=== PATIENT | female | born 1970 | race Caucasian/White ===

== ENCOUNTER → 2019-11-18 11:30 | Outpatient (CLI) | payer OTHER, SELFPAY ==
--- NOTE | ~2019-11-18 | MM_ITS ---
EXAMINATION: MM screening [facility]ar BI w angel HISTORY: Screening mammogram TECHNIQUE: Craniocaudal and mediolateral oblique 3-D tomosynthesis images were obtained and synthetic 2-D images were generated. CAD analysis was submitted and interpreted. COMPARISON: 03/30/2018 diagnostic right digital mammogram and limited right breast ultrasound 03/22/2018, 02/13/2017 bilateral digital screening mammogram examinations BREAST PARENCHYMAL COMPOSITION: The breasts are heterogeneously dense, which may obscure small masses . FINDINGS: There is no evidence of suspicious mass, calcification, or architectural distortion to sugg est malignancy in either breast. There has been no suspicious interval change. IMPRESSION: 1. No mammographic evidence of malignancy. 2. Recommend routine screening mammography in one year. BI-RADS Category 1: Negative Reviewed, dictated and finalized at location A.
== END ==
PROVIDERS: PCP Family Medicine; Visit Provider Obstetrics & Gynecology
DX: Z12.31 Encounter for screening mammogram for malignant neoplasm of breast (principal)
CPT/HCPCS: 77063; 77067

== ENCOUNTER 2021-01-05 13:21 | Emergency (ER) | payer OTHER, SELFPAY ==
--- NOTE | ~2021-01-05 | XR_ITS ---
EXAMINATION: XR chest 2V DATE: 01/05/2021 13:41 INDICATION: Chest pain. TECHNIQUE: Frontal and lateral views of the chest were obtained. COMPARISON: Chest 2 views 05/31/2010 FINDINGS: The chest demonstrates clear lungs without pneumonia, pleural effusion, or pneumothorax. Th e heart size is normal. IMPRESSION: 1. No acute cardiopulmonary disease. Reviewed, dictated and finalized at location A.
--- NOTE | 2021-01-05 13:22 | ECG_ITS ---
Measurements Intervals [place] Rate: 80 P: 76 W[place]: 148 QRS: 83 QRSD: 84 T: 17 QT: 358 QTc: 413 Interpretive Statements SINUS RHYTHM WITH SINUS ARRHYTHMIA NONSPECIFIC ST & T-WAVE ABNORMALITY- ANTEROLAT/INF LEADS BASELINE WANDER- II, III BORDERLINE ECG Electronically Signed On 01-05-2021 15:09:13 CDT by Jeronimo Teresa D.O.
[2021-01-05 13:37] VITALS: BP 154/93; PULSE 80; RESP 18; TEMP 36.6; O2SAT 98
[2021-01-05 13:44] LABS: Basophils Percent Auto 0.6 % (0.2-1.2); Eosinophils Absolute Auto 0.2 K/mm3 (0-0.3); Eosinophils Percent Auto 2.6 % (0-4.4); Hematocrit 38.7 % (37.0-47.0); Hemoglobin 13.2 g/dL (12.0-15.0); Immature Granulocyte Absolute 0.01 K/mm3 (0.00-0.031); Immature Granulocyte Percent A 0.1 % (0-0.5); Lymphocytes Absolute Auto 2.67 K/mm3 (0.9-3.2); Lymphocytes Percent Auto 38.8 % (18.3-44.2); Mean Corpuscular HGB Conc 34.1 g/dl (32-36); Mean Corpuscular Hemoglobin 31.6 pg (26-34); Mean Corpuscular Volume 92.6 fl (80-100); Mean Platelet Volume 10.1 fl (7.4-10.4); Monocytes Absolute Auto 0.6 K/mm3 (0.1-0.6); Monocytes Percent Auto 8.4 % (2.6-8.5); Neutrophils Absolute Auto 3.4 K/mm3 (1.3-6.7); Neutrophils Percent Auto 49.5 % (45.5-73.1); Platelet Count Result 216 k/mm3 (150-375); Red Blood Count 4.18 M/mm3 (4.2-5.4); Red Cell Distribution Width 12.2 % (11.5-14.5); White Blood Count 6.9 K/mm3 (4.5-10.0)
[2021-01-05 13:52] VITALS: PULSE 85; O2SAT 100
[2021-01-05 13:53] LABS: Anion Gap 11 mmol/L (8-16); Blood Urea Nitrogen 15 mg/dL (7-17); Calcium 9.4 mg/dL (8.4-10.2); Carbon Dioxide 26 mmol/L (22-30); Chloride 102 mmol/L (98-107); Estimated Glomerular Filt Rate > 60; Glucose 109 mg/dL (65-105); Potassium 3.8 mmol/L (3.4-5.0); Sodium 139 mmol/L (137-145)
[2021-01-05 14:05] LABS: Troponin I < 0.012 ng/mL (0.000-0.034)
--- NOTE | 2021-01-05 14:12 | ED.CHESTPAIN ---
HPI - Chest Pain General Chief Complaint: Chest Pain Stated Complaint: cp Time Seen by Provider: 01/05/21 13:33 Source: patient and RN notes reviewed Mode of arrival: ambulatory Limitations: no limitations History of Present Illness HPI narrative: Patient is 50 years old white female presents with intermittent left chest burning sensation gets worse with breathing radiating to left upper back started 24 hours ago. Patient denies any relieving factors. Patient also complaining of intermittent epigastric pain mainly after eating meat for the last 2 weeks. Currently is asymptomatic. History of hypertension. Does not smoke does not drink does not use drugs. Under tremendous amount of stress lately. Patient denies any fever, chills, nausea, vomiting, Covid infection, or Covid vaccination. Related Data Allergies Allergy/AdvReac Type Severity Reaction Status Date / Time amoxicillin [From Augmentin] AdvReac Intermediate Nausea and Verified 01/05/21 13:54 Vomiting clavulanic acid AdvReac Intermediate Nausea and Verified 01/05/21 13:54 [From Augmentin] Vomiting Review of Systems Review of Systems: Narrative: CONSTITUTIONAL: Denies fever, chills, or sweats. EYES: Denies visual changes, redness, or discharge. ENT: Denies rhinorrhea, congestion, sore throat, or otalgia. CARDIOVASCULAR: Denies chest pain, palpitations, or edema. RESPIRATORY: Denies cough or dyspnea. GASTROINTESTINAL: Denies abdominal pain, nausea, vomiting, or diarrhea. GENITOURINARY: Denies dysuria or hematuria. SKIN: Denies rash or itching. MUSCULOSKELETAL: Denies back pain, joint pain, or myalgia. NEUROLOGIC: Denies headache, numbness, or weakness. PSYCHIATRIC: Denies anxiety or depression. [facility] Past Medical History Medical History Anxiety BMI 27.0-27.9,adult Depression Endometriosis Genital herpes HLD (hyperlipidemia) Hypertension Surgical History Surgical History H/O: hysterectomy Family History Family History Mother Depression Grandparent Hypertension Carcinoma of colon Family history of malignant neoplasm of breast Father Family history of diabetes mellitus in first degree relative Social History Social History Smoking status: Never smoker Second hand tobacco smoke exposure: No Alcohol intake: never Course Vital Signs Vital signs: Vital Signs Temperature 36.6 C 01/05/21 13:37 Pulse Rate 80 01/05/21 13:37 Respiratory Rate 18 01/05/21 13:37 Blood Pressure 154/93 H 01/05/21 13:37 Pulse Oximetry 98 01/05/21 13:37 Temperature 36.6 C 01/05/21 13:37 Pulse Rate 85 01/05/21 13:52 Respiratory Rate 18 01/05/21 13:37 Blood Pressure 154/93 H 01/05/21 13:37 Pulse Oximetry 100 01/05/21 13:52 MDM - Chest Pain Lab Data Result diagrams: 01/05/21 13:34 01/05/21 13:34 Labs: Lab Results 01/05/21 01/05/21 01/05/21 Range/Units 13:34 13:34 13:34 WBC 6.9 (4.5-10.0) K/mm3 RBC 4.18 L (4.2-5.4) M/mm3 Hgb 13.2 (12.0-15.0) g/dL Hct 38.7 (37.0-47.0) % MCV 92.6 (80-100) fl MCH 31.6 (26-34) pg MCHC 34.1 (32-36) g/dl RDW 12.2 (11.5-14.5) % Plt Count 216 (150-375) k/mm3 MPV 10.1 (7.4-10.4) fl Immature Gran % (Auto) 0.1 (0-0.5) % Neut % (Auto) 49.5 (45.5-73.1) % Lymph % (Auto) 38.8 (18.3-44.2) % [place] % (Auto) 8.4 (2.6-8.5) % Eos % (Auto) 2.6 (0-4.4) % Baso % (Auto) 0.6 (0.2-1.2) % Lymph # (Auto) 2.67 (0.9-3.2) K/mm3 [place] # (Auto) 0.6 (0.1-0.6) K/mm3 Eos # (Auto) 0.2 (0-0.3) K/mm3 Baso # (Auto) 0.0 (0.0-0.1) K/mm3 Abs Immat Gran (auto) 0.01 (0.00-0.031) K/mm3 Absolute Neuts (auto) 3.4 (1.3-6.7) K/mm3 Absolute Nucleated RBC 0.0 (0.0-0.012) K/mm3 Nucleated RB
[2021-01-05 14:18] LABS: Lipase 30 U/L (23-300)
[2021-01-05 14:32] LABS: Prothrombin Time 13.3 Seconds (11.1-14.7)
[2021-01-05 14:34] LABS: Partial Thromboplastin Time 27.4 SECONDS (22.3-36.8)
[2021-01-05] MEDS: ASPIRIN 81 MG CHEWABLE TABLET 324 MG PO (14:34)
[2021-01-05 14:49] LABS: D Dimer 0.25 ug/mL (<0.48)
[2021-01-05 15:50] VITALS: BP 156/91; PULSE 83; RESP 18; O2SAT 100
== END 2021-01-05 15:50 | disposition home or self-care (01) ==
PROVIDERS: Emergency Provider Emergency Medicine; PCP Family Medicine
DX: F41.9 Anxiety disorder, unspecified (principal); R07.9 Chest pain, unspecified; R10.10 Upper abdominal pain, unspecified; E78.5 Hyperlipidemia, unspecified; I10 Essential (primary) hypertension; F32.9 Major depressive disorder, single episode, unspecified; N80.9 Endometriosis, unspecified; R94.31 Abnormal electrocardiogram [ECG] [EKG]
CPT/HCPCS: 36415; 71046; 80048; 83690; 84484; 85025; 85380; 85610; 85730; 93005; 99284; A9270

== ENCOUNTER → 2021-03-11 17:25 | Outpatient (CLI) | payer OTHER, SELFPAY ==
--- NOTE | ~2021-03-11 | MM_ITS ---
EXAMINATION: MM screening cesar BI w angel HISTORY: Screening TECHNIQUE: Craniocaudal and mediolateral oblique 3-D tomosynthesis images were obtained and synthetic 2-D images were generated. CAD analysis was submitted and interpreted. COMPARISON: Comparison to multiple prior studies sequentially, with oldest reviewed study dated 09/21. BREAST PARENCHYMAL COMPOSITION: The breasts are heterogeneously dense, which may obscure small masses . FINDINGS: There is a subtle developing asymmetry in the upper outer quadrant of the right breast. The left breast is stable without evidence for malignancy. IMPRESSION: 1. Subtle developing asymmetry upper outer quadrant of the right breast. 2. Additional mammographic views and possible breast ultrasound are recommended. BI-RADS Category 0: Incomplete: Needs additional imaging evaluation. Reviewed, dictated and finalized at location A. IMPRESSION: 1. Subtle developing asymmetry upper outer quadrant of the right breast. 2. Additional mammographic views and possible breast ultrasound are recommended . BI-RADS Category 0: Incomplete: Needs additional imaging evaluation.
== END ==
PROVIDERS: Visit Provider Obstetrics & Gynecology
DX: Z12.31 Encounter for screening mammogram for malignant neoplasm of breast (principal); R92.8 Other abnormal and inconclusive findings on diagnostic imaging of breast
CPT/HCPCS: 77063; 77067

== ENCOUNTER → 2021-04-22 08:33 | Outpatient (CLI) | payer OTHER, SELFPAY ==
--- NOTE | ~2021-04-22 | MMUS_ITS ---
EXAMINATION: MM diagnostic cesar RT w angel, US breast RT limited HISTORY: Follow-up right breast asymmetry TECHNIQUE: Additional 3-D tomosynthesis images of the right breast were performed and synthetic 2-D i mages were generated. CAD analysis was submitted and interpreted. High resolution right breast ultras ound was performed. COMPARISON: Comparison to multiple prior studies sequentially, with oldest reviewed study dated 11/19. BREAST PARENCHYMAL COMPOSITION: The breasts are heterogenously dense, which may obscure small masses. FINDINGS: MAMMOGRAPHIC FINDINGS: There are no suspicious masses, calcifications or architectural distortion with spot compression or m ediolateral views of the right breast. ULTRASOUND: Limited right breast ultrasound: Normal heterogeneous echotexture without focal solid or cystic mass. IMPRESSION: 1. No evidence for malignancy in the right breast. 2. Routine yearly screening mammogram and regular clinical breast examination are recommended. BI-RADS Category 1: Negative Reviewed, dictated and finalized at location A. IMPRESSION: 1. No evidence for malignancy in the right breast. 2. Routine yearly screening mammogram and regular clinical breast examination a re recommended. BI-RADS Category 1: Negative
== END ==
PROVIDERS: Visit Provider Obstetrics & Gynecology
DX: R92.8 Other abnormal and inconclusive findings on diagnostic imaging of breast (principal)
CPT/HCPCS: 76642; 77061; 77065; G0279

== ENCOUNTER → 2022-10-16 15:21 | Outpatient (CLI) | payer OTHER, SELFPAY ==
--- NOTE | ~2022-10-16 | MM_ITS ---
EXAMINATION: MM screening [facility] BI w angel HISTORY: Screening mammogram TECHNIQUE: Craniocaudal and mediolateral oblique 3-D tomosynthesis images were obtained and synthetic 2-D images were generated. CAD analysis was submitted and interpreted. COMPARISON: 04/22/2021, 03/11/2021, 11/18/2019 BREAST PARENCHYMAL COMPOSITION: The breasts are heterogeneously dense, which may obscure small masses . FINDINGS: No suspicious mass, calcification, or architectural distortion are identified in either josef ast to suggest malignancy. There has been no suspicious interval change. IMPRESSION: 1. No mammographic evidence of malignancy. 2. Recommend routine screening mammography in one year. BI-RADS Category 1: Negative Reviewed, dictated and finalized at location A. [employer]
== END ==
PROVIDERS: PCP Family Medicine; Visit Provider Obstetrics & Gynecology
DX: Z12.31 Encounter for screening mammogram for malignant neoplasm of breast (principal)
CPT/HCPCS: 77063; 77067

== ENCOUNTER 2023-01-09 02:21 | Day surgery (SDC) | payer OTHER, SELFPAY ==
[2022-12-25 11:18] VITALS: BMI 25.4
[2023-01-09 09:48] VITALS: BP 106/77; PULSE 82; RESP 16; TEMP 36.4; O2SAT 97
[2023-01-09] MEDS: LACTATED RINGERS 1,000 ML 150 ML IV CONT (09:55)
--- NOTE | 2023-01-09 10:19 | PM.HPGS ---
History of Present Illness History of Present Illness Consent: Risks, benefits, and alternatives have been discussed and questions answered. Patient agrees to proceed with procedure. Chief complaint: neoplasm screening Narrative: Neha Rainey is a 52 year old female Presents for screening colonoscopy. Patient's current weight appetite and bowel movements are normal. She denies abdominal pain. She has had no bleeding. Patient does notice intermittent bright red blood per rectum after a bowel movement. She states that will fill the toilet bowl full of bright red blood. She denies any associated pain. In general her bowel habits are normal. Her family history noncontributory. Review of Systems Review of Systems: Review of systems noncontributory. [facility] Past Medical History Medical History Anxiety BMI 27.0-27.9,adult Depression Endometriosis Genital herpes HLD (hyperlipidemia) Hypertension Surgical History Surgical History H/O: hysterectomy Family History Family History Mother Depression Grandparent Hypertension Carcinoma of colon Family history of malignant neoplasm of breast Father Family history of diabetes mellitus in first degree relative Social History Social History (Updated 11/05/22 @ 08:22 by Sara Lambert [facility]) Smoking status: Never smoker Second hand tobacco smoke exposure: No Alcohol intake: current Alcohol use details: one drink monthly Substance use: never Substance use type: does not use Lack of Transportation: No Lack of Food: Never True Current Housing: I Have Housing Concerned About Future Housing: No Difficulty Paying Gas/Electric Bills: No Difficulty Paying for Meds: No Currently Unemployed: No Education: Decline to Answer Difficulty w/ Childcare or Family Care: No Living arrangements: with family Gender identity (if verbalized by the patient): Female Sexual Orientation (if Verbalized by the Patient): Straight or Heterosexual Spiritual care concerns: No Agree to blood products: Yes Meds Home Medications and Allergies Home Medications Medication Instructions Recorded Confirmed Type sertraline 100 mg tablet 150 mg PO DAILY #135 tabs 02/11/22 01/09/23 Rx amlodipine 5 mg tablet 5 mg PO DAILY #90 tabs 08/18/22 01/09/23 Rx buspirone 5 mg tablet 5 mg PO BID PRN anxiety #30 tabs 11/05/22 01/09/23 Rx irbesartan 75 mg tablet 75 mg PO DAILY #90 tabs 11/05/22 01/09/23 Rx rosuvastatin 5 mg tablet (Crestor) 5 mg PO DAILY #30 tabs 11/21/22 01/09/23 Rx meloxicam 15 mg tablet 15 mg PO DAILY #90 tabs 01/05/23 01/09/23 Rx Allergies Allergy/AdvReac Type Severity Reaction Status Date / Time amoxicillin [From Augmentin] AdvReac Intermediate Nausea and Verified 01/09/23 09:46 Vomiting clavulanic acid AdvReac Intermediate Nausea and Verified 01/09/23 09:46 [From Augmentin] Vomiting Vital Signs Vital Signs - 24 hr 01/09/23 09:48 Temperature 97.5 F L Pulse Rate 82 Respiratory Rate 16 Blood Pressure 106/77 Pulse Oximetry 97 Oxygen Delivery Room Air Exam Narrative: Physical exam reveals patient to be alert. Vital signs stable. HEENT exam is unremarkable. Patient is anicteric. Lungs are clear to auscultation and percussion. Heart is without murmur or extra sounds. Abdomen bowel sounds are present soft nontender with no organomegaly. Digital external rectal exam is normal. Assessment and Plan Assessment and plan (1) Encounter for screening colonoscopy: Code(s): Z12.11 - Encounter for screening for malignant neoplasm of colon Status: Acute Assessment and Plan: Patient presents today for screening exam because of her age. Further recommendations may be given after endoscopy. High-fiber diet advised. Further recommendati
--- NOTE | 2023-01-09 10:21 | WPDANESEPPF ---
Anes - Initial Pre Proc Eval Procedure: Operation Date: 01/09/23 11:00 Proposed Procedures p Screening Colonoscopy - Aron Lima MD Date/Time: 01/09/23 10:21 Surgeon: Aron Lima MD Pre Op Diagnosis: neoplasm screening Patient Data Age: 52 Gender: F Height: 1.75 m Weight: 77.4 kg Last Vital Signs Temp 97.5 F L 01/09/23 09:48 Pulse 82 01/09/23 09:48 Resp 16 01/09/23 09:48 BP 106/77 01/09/23 09:48 Pulse Ox 97 01/09/23 09:48 O2 Del Method Room Air 01/09/23 09:48 Allergies Allergy/AdvReac Type Severity Reaction Status Date / Time amoxicillin [From Augmentin] AdvReac Intermediate Nausea and Verified 01/09/23 09:46 Vomiting clavulanic acid AdvReac Intermediate Nausea and Verified 01/09/23 09:46 [From Augmentin] Vomiting Home Medications Medication Instructions Recorded Confirmed Type sertraline 100 mg tablet 150 mg PO DAILY #135 tabs 02/11/22 01/09/23 Rx amlodipine 5 mg tablet 5 mg PO DAILY #90 tabs 08/18/22 01/09/23 Rx buspirone 5 mg tablet 5 mg PO BID PRN anxiety #30 tabs 11/05/22 01/09/23 Rx irbesartan 75 mg tablet 75 mg PO DAILY #90 tabs 11/05/22 01/09/23 Rx rosuvastatin 5 mg tablet (Crestor) 5 mg PO DAILY #30 tabs 11/21/22 01/09/23 Rx meloxicam 15 mg tablet 15 mg PO DAILY #90 tabs 01/05/23 01/09/23 Rx Patient hx anesthesia problems: none Family hx anesthesia problems: none Results Review: All pre-operative results and documents have been reviewed as part of the pre-operative evaluation. [facility] Past Medical History Medical History Anxiety BMI 27.0-27.9,adult Depression Endometriosis Genital herpes HLD (hyperlipidemia) Hypertension Surgical History Surgical History H/O: hysterectomy Family History Family History Mother Depression Grandparent Hypertension Carcinoma of colon Family history of malignant neoplasm of breast Father Family history of diabetes mellitus in first degree relative Social History Social History (Updated 11/05/22 @ 08:22 by Sara Lambert [facility]) Smoking status: Never smoker Second hand tobacco smoke exposure: No Alcohol intake: current Alcohol use details: one drink monthly Substance use: never Substance use type: does not use Lack of Transportation: No Lack of Food: Never True Current Housing: I Have Housing Concerned About Future Housing: No Difficulty Paying Gas/Electric Bills: No Difficulty Paying for Meds: No Currently Unemployed: No Education: Decline to Answer Difficulty w/ Childcare or Family Care: No Living arrangements: with family Gender identity (if verbalized by the patient): Female Sexual Orientation (if Verbalized by the Patient): Straight or Heterosexual Spiritual care concerns: No Agree to blood products: Yes Anes - Eval Final PreProcedure Day of Procedure 01/09/23 10:21 Patient weight: normal Heart: regular rate and rhythm Lungs: clear to auscultation Airway: Mallampati scale class II Neurological: alert and oriented Last oral intake: >/= 8 hours ASA classification: III Emergent: no Anesthetic plan: proceed Anesthesia type and monitoring: general GIVS and standard monitoring Results Review: All pre-operative results and documents have been reviewed as part of the pre-operative evaluation. Informed Consent: The patient's anesthetic plan and its attendant risks and benefits were discussed with the patient/family/POA. Questions were solicited and answers provided to the satisfaction of the patient/family/POA.
[2023-01-09 10:47] VITALS: BP 86/50; PULSE 74; RESP 20; O2SAT 96
[2023-01-09 10:57] VITALS: BP 101/53; PULSE 72; RESP 20; O2SAT 98
[2023-01-09 11:07] VITALS: BP 107/67; PULSE 70; RESP 20; O2SAT 99
== END 2023-01-09 11:13 | disposition home or self-care (01) ==
PROVIDERS: PCP Family Medicine; Visit Provider Internal Medicine Gastroenterology
PROC: 0DJD8ZZ Inspection of Lower Intestinal Tract, Via Natural or Artificial Opening Endoscopic (ICD-10-PCS; CPT 45378; principal; 2023-01-09 11:00)
DX: Z12.11 Encounter for screening for malignant neoplasm of colon (principal); K64.8 Other hemorrhoids; I10 Essential (primary) hypertension; E78.5 Hyperlipidemia, unspecified; F41.9 Anxiety disorder, unspecified; F32.A Depression, unspecified
CPT/HCPCS: 45378; J2704; J7120

== ENCOUNTER → 2023-06-09 09:21 | Outpatient (CLI) | payer OTHER, SELFPAY ==
--- NOTE | ~2023-06-09 | XR_ITS ---
EXAMINATION: XR hand RT 2V DATE: 06/09/2023 09:39 INDICATION: Right hand pain. TECHNIQUE: 2 views of right hand were obtained. COMPARISON: None. FINDINGS: Bone alignment is normal. No fracture. There is mild osteoarthritis of second metacarpophal angeal joint and second and third distal interphalangeal joints. IMPRESSION: 1. Mild polyarticular osteoarthritis. Reviewed, dictated and finalized at location E.
== END ==
PROVIDERS: PCP Family Medicine; Visit Provider Physician Assistant Medical
DX: M19.041 Primary osteoarthritis, right hand (principal)
CPT/HCPCS: 73120

== ENCOUNTER 2023-11-27 16:15 | Outpatient (CLI) | payer OTHER, SELFPAY ==
--- NOTE | ~2023-11-27 | MM_ITS ---
EXAMINATION: MM screening cesar BI w angel HISTORY: Screening mammogram TECHNIQUE: Craniocaudal and mediolateral oblique 3-D tomosynthesis images were obtained and synthetic 2-D images were generated. CAD analysis was submitted and interpreted. COMPARISON: 10/16/2022 bilateral screening mammogram 04/22/2021 diagnostic right mammogram and limited right breast ultrasound 03/11/2021, 11/18/2019 bilateral screening mammogram BREAST PARENCHYMAL COMPOSITION: The breasts are heterogeneously dense, which may obscure small masses . FINDINGS: There is no evidence of suspicious mass, calcification, or architectural distortion to sugg est malignancy in either breast. There has been no suspicious interval change. IMPRESSION: 1. No mammographic evidence of malignancy. 2. Recommend routine screening mammography in one year. BI-RADS Category 1: Negative Reviewed, dictated and finalized at location A.
== END 2023-11-27 16:16 ==
PROVIDERS: PCP Obstetrics & Gynecology; Visit Provider Obstetrics & Gynecology
DX: Z12.31 Encounter for screening mammogram for malignant neoplasm of breast (principal)
CPT/HCPCS: 77063; 77067

== ENCOUNTER 2024-01-29 10:51 | Emergency (ER) | payer OTHER, SELFPAY ==
--- NOTE | ~2024-01-29 | XR_ITS ---
EXAMINATION: XR chest 2V DATE: 01/29/2024 11:24 INDICATION: Shortness of breath and cough TECHNIQUE: PA and lateral views of the chest were obtained. COMPARISON: Chest radiograph dated 01/05/2021 FINDINGS: The lungs remain clear with no focal airspace opacities, pulmonary edema, pleural effusion or pneumot horax. The cardiomediastinal silhouette is normal. Mild thoracic spondylosis. IMPRESSION: 1. No acute cardiopulmonary disease. Reviewed, dictated and finalized at location A.
[2024-01-29 11:00] VITALS: BP 146/96; PULSE 79; RESP 16; TEMP 36.8; O2SAT 97
--- NOTE | 2024-01-29 11:03 | ED.URI ---
HPI - URI/Sore Throat General Chief Complaint: Upper Respiratory Infection Stated Complaint: cough,sob Time Seen by Provider: 01/29/24 11:03 Source: patient, RN notes reviewed and old records reviewed Mode of arrival: ambulatory Limitations: no limitations History of Present Illness HPI Narrative: 53-year-old female presents to the [facility] with complaints of cough and shortness of breath. Denies chest pain. Reports that she has congestion. States that 2 weeks ago she had a cold, took [id number] products, got better. His symptoms returned about 5 days ago, has not taken anything for symptoms this time. Patient states she has concern for pneumonia Patient states that she has not taken her blood pressure medication for an unknown amount of time. Onset (ago): day(s) (5) Treatments prior to arrival: none Related Data Allergies Allergy/AdvReac Type Severity Reaction Status Date / Time amoxicillin [From Augmentin] AdvReac Intermediate Nausea and Verified 01/29/24 11:11 Vomiting clavulanic acid AdvReac Intermediate Nausea and Verified 01/29/24 11:11 [From Augmentin] Vomiting Review of Systems Review of Systems: All systems reviewed & are unremarkable except as noted in HPI and below Constitutional: Constitutional: Reports no additional constitutional complaints Eyes: Eyes: Reports no additional eye complaints ENT: Reports system reviewed and no additional complaints, except as documented Cardiovascular: Cardiovascular: Reports no additional cardiovascular complaints, Denies chest pain and Denies dyspnea Respiratory: Respiratory: Reports as per HPI, Reports chest congestion, Reports cough and Denies dyspnea Gastrointestinal: Gastrointestinal: Reports no additional gastrointestinal complaints, Denies abdominal pain, Denies nausea and Denies vomiting Musculoskeletal: Musculoskeletal: Reports no additional musculoskeletal complaints Integumentary/Breasts: Skin/Breast: Reports system reviewed and no additional complaints, except as docu Neurologic: Reports system reviewed and no additional complaints, except as documented Psychiatric: Psychiatric: Reports no additional psychiatric complaints Allergic/Immunologic: Allergic/Immunologic: Reports no additional allergic/immunologic complaints PMFSH Past Medical History Medical History Anxiety BMI 27.0-27.9,adult Depression Endometriosis Genital herpes HLD (hyperlipidemia) Hypertension Surgical History Surgical History H/O: hysterectomy Family History Family History Mother Depression Grandparent Hypertension Carcinoma of colon Family history of malignant neoplasm of breast Father Family history of diabetes mellitus in first degree relative Social History Social History Smoking status: Never smoker Second hand tobacco smoke exposure: No Alcohol intake: current Alcohol use details: one drink monthly Substance use: never Substance use type: does not use Lack of Transportation: No Lack of Food: Never True Current Housing: I Have Housing Concerned About Future Housing: No Difficulty Paying Gas/Electric Bills: No Difficulty Paying for Meds: No Currently Unemployed: No Education: Decline to Answer Difficulty w/ Childcare or Family Care: No Living arrangements: with family Gender identity (if verbalized by the patient): Female Sexual Orientation (if Verbalized by the Patient): Straight or Heterosexual Spiritual care concerns: No Agree to blood products: Yes Comments At the time of my signature, I reviewed and agree with the nursing past medical, surgical, social, and family history. There is no relevant family history pertinent to the patient complaint. Exam Const: General: cooperative, he
== END 2024-01-29 11:58 | disposition home or self-care (01) ==
PROVIDERS: Emergency Provider Nurse Practitioner; PCP Family Medicine
DX: J06.9 Acute upper respiratory infection, unspecified (principal); R09.82 Postnasal drip; N80.9 Endometriosis, unspecified; E78.5 Hyperlipidemia, unspecified; I10 Essential (primary) hypertension; F41.9 Anxiety disorder, unspecified; F32.A Depression, unspecified
CPT/HCPCS: 71046; 99213; G0463

== ENCOUNTER 2024-02-05 13:34 | Emergency (ER) | payer OTHER, SELFPAY ==
[2024-02-05] VITALS (14 sets, daily range): BP systolic 109–131; BP diastolic 72–88; PULSE 75–88; RESP 12–20; TEMP 36.6; O2SAT 97–99
--- NOTE | ~2024-02-05 | XR_ITS ---
EXAMINATION: XR chest 2V DATE: 02/05/2024 13:51 INDICATION: Left chest pain. TECHNIQUE: Frontal and lateral views of the chest were obtained. COMPARISON: Chest 2 views 01/29/24 FINDINGS: There is no pneumonia, pleural effusion, or pneumothorax. The heart size is normal. IMPRESSION: 1. No acute cardiopulmonary disease. Reviewed, dictated and finalized at location A.
--- NOTE | 2024-02-05 13:35 | ECG_ITS ---
Test Date: 2024-02-05 13:39:33 Measurements Intervals [place] Rate: 83 P: 69 [place]: 136 QRS: 47 QRSD: 80 T: 64 QT: 335 QTc: 395 Interpretive Statements SINUS RHYTHM NONSPECIFIC ST & T-WAVE ABNORMALITY BORDERLINE ECG No previous ECG available for comparison Electronically Signed On 02-05-2024 15:57:03 CDT by Armin Nieto M.D.
--- NOTE | 2024-02-05 13:39 | ED.CHESTPAIN ---
HPI - Chest Pain General Chief Complaint: Chest Pain <Sulma Mathis PA-C - Last Filed: 02/05/24 13:42> Stated Complaint: tightness in chest <Sulma Mathis PA-C - Last Filed: 02/05/24 13:42> Time Seen by Provider: 02/05/24 16:29 <Sulma Mathis PA-C - Last Filed: 02/05/24 13:42> Focused HPI: 53-year-old female with history of hypertension and hyperlipidemia presents to the emergency department for chest tightness for 1 week. Patient states the pain is located throughout the central aspect of her chest and today she noticed some pain in her left shoulder but is unsure if it is related to her chest pain or her arthritis. She states today her pain worsened as well and caused some dyspnea which prompted her to come to the ED today. She notes she was seen in urgent care approximately 1 week ago had a chest x-ray performed at that time which was unremarkable. States a couple weeks ago she had a virus and has an intermittent any lingering cough, otherwise denies cough or congestion, fever. She denies lower extremity edema, recent surgeries or hospitalizations. She does endorse a history of SVT, otherwise denies cardiac history or familial cardiac history. She does not smoke. GENERAL: Well-appearing, well-nourished, and in no acute distress. HEAD: Normocephalic, atraumatic. CHEST: Clear to auscultation. ?No respiratory distress. HEART: Regular rate and rhythm.? NEURO: ?Alert and oriented x3. Patient screened in triage and initial orders placed.? ?Additional care and disposition to be based upon?diagnostic testing and treatment. <Sulma Mathis PA-C - Last Filed: 02/05/24 13:42> Focused HPI: 53-year-old female with history of hypertension and hyperlipidemia presents to the emergency department for chest tightness for 1 week. Patient states the pain is located throughout the central aspect of her chest and today she noticed some pain in her left shoulder but is unsure if it is related to her chest pain or her arthritis. She states today her pain worsened as well and caused some dyspnea which prompted her to come to the ED today. She notes she was seen in urgent care approximately 1 week ago had a chest x-ray performed at that time which was unremarkable. States a couple weeks ago she had a virus and has an intermittent any lingering cough, otherwise denies cough or congestion, fever. She denies lower extremity edema, recent surgeries or hospitalizations. She does endorse a history of SVT, otherwise denies cardiac history or familial cardiac history. She does not smoke. GENERAL: Well-appearing, well-nourished, and in no acute distress. HEAD: Normocephalic, atraumatic. CHEST: Clear to auscultation. ?No respiratory distress. HEART: Regular rate and rhythm.? NEURO: ?Alert and oriented x3. Patient screened in triage and initial orders placed.? ?Additional care and disposition to be based upon?diagnostic testing and treatment. Patient did inform me that she felt as though symptoms could be related to acid reflux but was unsure so she decided to come to the ED for further evaluation. Denies taking anything at home for acid reflux. <Jorge Mak MD - Last Filed: 02/05/24 17:05> Related Data Allergies/Adverse Reactions: Allergies Allergy/AdvReac Type Severity Reaction Status Date / Time amoxicillin [From Augmentin] AdvReac Intermediate Nausea and Verified 01/29/24 11:11 Vomiting clavulanic acid AdvReac Intermediate Nausea and Verified 01/29/24 11:11 [From Augmentin] Vomiting <Sulma Mathis PA-C - Last Filed: 02/05/24 13:42> Review of Systems Review of Systems: All systems are reviewed and are negative unless stated otherwise in the HPI. <Jorge Mak MD - Last Filed: 02/05/24 17:05> PMFSH Past Medical History Medical History: Medical History Anxiety BMI 27.0-27.9,adult Depression Endometriosis G
[2024-02-05] MEDS: ASPIRIN 81 MG CHEWABLE TABLET 324 MG PO (14:54)
[2024-02-05 15:04] LABS: Basophils Percent Auto 0.5 % (0.2-1.2); Eosinophils Absolute Auto 0.2 K/mm3 (0-0.3); Eosinophils Percent Auto 1.7 % (0-4.4); Hematocrit 40.5 % (37.0-47.0); Hemoglobin 13.3 g/dL (12.0-15.0); Immature Granulocyte Absolute 0.05 K/mm3 (0.00-0.031); Immature Granulocyte Percent A 0.6 % (0-0.5); Lymphocytes Absolute Auto 2.67 K/mm3 (0.9-3.2); Mean Corpuscular HGB Conc 32.8 g/dl (32-36); Mean Corpuscular Hemoglobin 31.5 pg (26-34); Mean Platelet Volume 9.7 fl (7.4-10.4); Monocytes Absolute Auto 0.8 K/mm3 (0.1-0.6); Monocytes Percent Auto 8.7 % (2.6-8.5); Neutrophils Percent Auto 57.5 % (45.5-73.1); Platelet Count Result 234 k/mm3 (150-375); Red Blood Count 4.22 M/mm3 (4.2-5.4); Red Cell Distribution Width 12.6 % (11.5-14.5); White Blood Count 8.6 K/mm3 (4.5-10.0)
[2024-02-05 15:11] LABS: Partial Thromboplastin Time 25.4 Seconds (22.3-36.8); Prothrombin Time 13.6 Seconds (11.1-14.7)
[2024-02-05 15:13] LABS: Alanine Aminotransferase 26 U/L (6-35); Albumin Level 4.2 g/dL (3.5-5.1); Alkaline Phosphatase 66 U/L (38-126); Anion Gap 6 mmol/L (4-12); Aspartate Amino Transferase 23 U/L (14-36); Bilirubin,Total 0.4 mg/dL (0.2-1.3); Blood Urea Nitrogen 20 mg/dL (7-17); Calcium 9.1 mg/dL (8.4-10.2); Carbon Dioxide 30 mmol/L (22-30); Chloride 103 mmol/L (98-107); Estimated CRCL calculation 99 ml/min; Estimated Glomerular Filt Rate > 60; Glucose 110 mg/dL (65-110); Lipase 47 U/L (23-300); Potassium 3.6 mmol/L (3.4-5.0); Sodium 139 mmol/L (137-145)
[2024-02-05 15:24] LABS: Troponin I < 0.012 ng/mL (0.000-0.034)
[2024-02-05] MEDS: PANTOPRAZOLE SODIUM IV 40 MG VIAL IV PUSH (17:11)
--- NOTE | 2024-02-05 17:52 | ECG_ITS ---
Test Date: 2024-02-05 17:56:33 Measurements Intervals [place] Rate: 73 P: 51 VA: 161 QRS: 41 QRSD: 76 T: 45 QT: 381 QTc: 421 Interpretive Statements SINUS RHYTHM Compared to ECG 02/05/2024 13:39:33 T-wave abnormality no longer present Electronically Signed On 02-06-2024 11:08:39 CDT by Darci Corbett M.D.
[2024-02-05 18:30] LABS: Troponin I < 0.012 ng/mL (0.000-0.034)
== END 2024-02-05 21:58 | disposition home or self-care (01) ==
PROVIDERS: Emergency Medicine; Emergency Provider Emergency Medicine; PCP Family Medicine
DX: K21.9 Gastro-esophageal reflux disease without esophagitis (principal); I10 Essential (primary) hypertension; E78.5 Hyperlipidemia, unspecified
CPT/HCPCS: 36415; 71046; 80053; 83690; 84484; 85025; 85610; 85730; 93005; 96374; 99284; A9270; C9113

== ENCOUNTER 2024-03-03 10:56 | Emergency (ER) | payer OTHER, SELFPAY ==
[2024-03-03 11:26] VITALS: BP 146/96; PULSE 87; RESP 16; TEMP 36.8; O2SAT 98
--- NOTE | 2024-03-03 12:12 | ED.URI ---
HPI - URI/Sore Throat General Chief Complaint: Upper Respiratory Infection Stated Complaint: Cold Symptoms Time Seen by Provider: 03/03/24 12:05 Source: patient and RN notes reviewed Mode of arrival: ambulatory Limitations: no limitations History of Present Illness HPI Narrative: Patient presents today with a one-week history of postnasal drip, fatigue, and looser stools. Denies congestion, rhinorrhea, fever, shortness of breath. No known sick contacts. She has tried some decongestant and Mucinex with some mild relief. Related Data Allergies Allergy/AdvReac Type Severity Reaction Status Date / Time amoxicillin [From Augmentin] AdvReac Intermediate Nausea and Verified 03/03/24 11:22 Vomiting clavulanic acid AdvReac Intermediate Nausea and Verified 03/03/24 11:22 [From Augmentin] Vomiting Review of Systems Review of Systems: CONSTITUTIONAL: Denies body aches, fever, chills, or sweats.+ fatigue EYES: Denies visual changes, redness, or discharge. ENT: Denies rhinorrhea, congestion, sore throat, or otalgia.+ postnasal drip CARDIOVASCULAR: Denies chest pain, palpitations, or edema. RESPIRATORY: Denies cough or dyspnea. GASTROINTESTINAL: Denies abdominal pain, nausea, vomiting. + loose stool GENITOURINARY: Denies dysuria or hematuria. SKIN: Denies rash, itching, or wounds. MUSCULOSKELETAL: Denies back pain, joint pain, or myalgia. NEUROLOGIC: Denies headache, numbness, tingling, or weakness. PSYCH: Denies depression or anxiety. [facility] Past Medical History Medical History Anxiety BMI 27.0-27.9,adult Depression Endometriosis Genital herpes HLD (hyperlipidemia) Hypertension Surgical History Surgical History H/O: hysterectomy Family History Family History Mother Depression Grandparent Hypertension Carcinoma of colon Family history of malignant neoplasm of breast Father Family history of diabetes mellitus in first degree relative Social History Social History Smoking status: Never smoker Second hand tobacco smoke exposure: No Alcohol intake: current Alcohol use details: one drink monthly Substance use: never Substance use type: does not use Lack of Transportation: No Lack of Food: Never True Current Housing: I Have Housing Concerned About Future Housing: No Difficulty Paying Gas/Electric Bills: No Difficulty Paying for Meds: No Currently Unemployed: No Education: Decline to Answer Difficulty w/ Childcare or Family Care: No Living arrangements: with family Gender identity (if verbalized by the patient): Female Sexual Orientation (if Verbalized by the Patient): Straight or Heterosexual Spiritual care concerns: No Agree to blood products: Yes Comments At time of signature, I have reviewed and agree with nursing past medical, surgical, social and family history unless otherwise noted. Please see nursing chart for further information. There is no relevant family history pertinent to the presenting complaint Exam Narrative: GENERAL: Mildly ill-appearing, well-nourished, and in no acute distress. HEAD: Normocephalic, atraumatic. EYES: EOMI. No redness or drainage. Conjunctivae normal. ENT: Mucous membranes pink and moist. Nares congested rhinorrhea. TMs normal bilaterally. Throat normal. Small amount of postnasal drainage. Uvula midline. NECK: Normal AROM. Supple. No lymphadenopathy. CHEST: No respiratory distress. Clear to auscultation. HEART: Regular rate and rhythm. No murmur appreciated. EXTREMITIES: Normal range of motion. No edema. SKIN: Warm, dry, no rash. Capillary refill normal. Normal skin turgor. NEURO: No focal deficits. Alert and oriented x3. Gait steady. PSYCH: Normal affect. No signs of depress
== END 2024-03-03 12:20 | disposition home or self-care (01) ==
PROVIDERS: Emergency Provider Nurse Practitioner; PCP Family Medicine
DX: J06.9 Acute upper respiratory infection, unspecified (principal); N80.9 Endometriosis, unspecified; E78.5 Hyperlipidemia, unspecified; I10 Essential (primary) hypertension
CPT/HCPCS: 99211; G0463

== ENCOUNTER 2024-05-06 08:07 | Emergency (ER) | payer OTHER, SELFPAY ==
--- NOTE | 2024-05-06 08:13 | ED.CHESTPAIN ---
HPI - Chest Pain General Stated Complaint: left side pain Time Seen by Provider: 05/06/24 08:07 Source: patient Mode of arrival: ambulatory Limitations: no limitations History of Present Illness HPI narrative: Neha is a 53-year-old female patient presenting to the clinic today with complaints of left-sided chest wall pain. Related Data Allergies Allergy/AdvReac Type Severity Reaction Status Date / Time amoxicillin [From Augmentin] AdvReac Intermediate Nausea and Verified 03/03/24 11:22 Vomiting clavulanic acid AdvReac Intermediate Nausea and Verified 03/03/24 11:22 [From Augmentin] Vomiting Review of Systems Review of Systems: Pertinent positives per HPI. Patient denies any fever, chills, rash, headache, visual changes, dizziness, cough, runny nose, sore throat, shortness of breath, chest pain, palpitations, nausea, vomiting, diarrhea, constipation, abdominal pain, or any urinary issues. PMFSH Past Medical History Medical History Anxiety BMI 27.0-27.9,adult Depression Endometriosis Genital herpes HLD (hyperlipidemia) Hypertension Surgical History Surgical History H/O: hysterectomy Family History Family History Mother Depression Grandparent Hypertension Carcinoma of colon Family history of malignant neoplasm of breast Father Family history of diabetes mellitus in first degree relative Social History Social History Smoking status: Never smoker Second hand tobacco smoke exposure: No Alcohol intake: current Alcohol use details: one drink monthly Substance use: never Substance use type: does not use Lack of Transportation: No Lack of Food: Never True Current Housing: I Have Housing Concerned About Future Housing: No Difficulty Paying Gas/Electric Bills: No Difficulty Paying for Meds: No Currently Unemployed: No Education: Decline to Answer Difficulty w/ Childcare or Family Care: No Living arrangements: with family Gender identity (if verbalized by the patient): Female Sexual Orientation (if Verbalized by the Patient): Straight or Heterosexual Spiritual care concerns: No Agree to blood products: Yes Comments At the time of my signature, I reviewed and agree with the nursing past medical, surgical, social, and family history. There is no relevant family history pertinent to the patient complaint. Exam Narrative: General: Well-developed, well nourished, in no apparent distress Head: Normocephalic, atraumatic. Cardio: Regular rate and rhythm, s1 and s2 normal, no murmur appreciated. Resp: Clear to auscultation bilaterally, no rhonchi, rales, wheezing or rubs. Extremities: No deformity, no edema, no cyanosis, capillary refill less than 2 seconds, peripheral pulses palpable and strong. Integumentary: [place], warm, and dry, intact without lesion, no rashes. Course Course Emergency Course: Portions of this record may have been created with voice recognition software. Level of Care: Express Care Visit Vital Signs Vital signs: Vital signs reviewed MDM - Chest Pain MDM Narrative Medical decision making narrative: At the time of visit patient is resting comfortably on the exam table. Patient appears to be nontoxic. Plan: Supportive measures were discussed with the patient and they voiced understanding discharge instructions and agrees to treatment plan. Return precautions reviewed Discharge Plan Discharge Patient Disposition: Home, Self-Care Condition: Stable Instructions: Antibiotic Form Prescriptions: No Action buspirone 5 mg tablet 5 mg PO BID PRN (Reason: anxiety) Qty: 30 2RF omeprazole 40 mg capsule,delayed release(DR/EC) 40 mg PO DAILY Qty: 14 0RF losartan 50 mg tablet
[2024-05-06 08:14] VITALS: BP 142/103; PULSE 76; RESP 16; TEMP 36.7; O2SAT 98
--- NOTE | 2024-05-06 08:26 | ED.ABDPAIN ---
HPI - Abdominal Pain General Chief Complaint: Unspecified Stated Complaint: left side pain Time Seen by Provider: 05/06/24 08:07 Source: patient Mode of arrival: ambulatory Limitations: no limitations History of Present Illness HPI narrative: Neha is a 53-year-old female patient presenting to the clinic today with complaints of left-sided upper quadrant abdominal pain and nausea. Pain is sharp and burning in nature and non radiating at this time. Rates pain 8/10. She reports symptoms started yesterday afternoon. Denies any fever, chills, or body aches. No URI symptoms. Denies any vomiting. Last bowel movement was yesterday and normal for the patient. History of constipation and endometriosis. Related Data Allergies Allergy/AdvReac Type Severity Reaction Status Date / Time amoxicillin [From Augmentin] AdvReac Intermediate Nausea and Verified 05/06/24 08:17 Vomiting clavulanic acid AdvReac Intermediate Nausea and Verified 05/06/24 08:17 [From Augmentin] Vomiting Review of Systems Review of Systems: Pertinent positives per HPI. Patient denies any fever, chills, rash, headache, visual changes, dizziness, cough, runny nose, sore throat, shortness of breath, chest pain, palpitations, vomiting, diarrhea, constipation, or any urinary issues. [facility] Past Medical History Medical History Anxiety BMI 27.0-27.9,adult Depression Endometriosis Genital herpes HLD (hyperlipidemia) Hypertension Surgical History Surgical History H/O: hysterectomy Family History Family History Mother Depression Grandparent Hypertension Carcinoma of colon Family history of malignant neoplasm of breast Father Family history of diabetes mellitus in first degree relative Social History Social History Smoking status: Never smoker Second hand tobacco smoke exposure: No Alcohol intake: current Alcohol use details: one drink monthly Substance use: never Substance use type: does not use Lack of Transportation: No Lack of Food: Never True Current Housing: I Have Housing Concerned About Future Housing: No Difficulty Paying Gas/Electric Bills: No Difficulty Paying for Meds: No Currently Unemployed: No Education: Decline to Answer Difficulty w/ Childcare or Family Care: No Living arrangements: with family Gender identity (if verbalized by the patient): Female Sexual Orientation (if Verbalized by the Patient): Straight or Heterosexual Spiritual care concerns: No Agree to blood products: Yes Comments At the time of my signature, I reviewed and agree with the nursing past medical, surgical, social, and family history. There is no relevant family history pertinent to the patient complaint. Exam Narrative: General: Well-developed, well nourished, in no apparent distress. Head: Normocephalic, atraumatic. Cardio: Regular rate and rhythm, s1 and s2 normal, no murmur appreciated. Resp: Clear to auscultation bilaterally, no rhonchi, rales, wheezing or rubs. Abdomen: Soft, pliable, bowel sounds present in all quadrants, left upper quadrant tender to palpation, no organomegly, no CVAT tenderness. Course Course Emergency Course: Portions of this record may have been created with voice recognition software. Level of Care: Express Care Visit Vital Signs Vital signs: Vital Signs Temperature 36.7 C 05/06/24 08:14 Pulse Rate 76 05/06/24 08:14 Respiratory Rate 16 05/06/24 08:14 Blood Pressure 142/103 H 05/06/24 08:14 Pulse Oximetry 98 05/06/24 08:14 Oxygen Delivery Room Air 05/06/24 08:14 Temperature 36.7 C 05/06/24 08:14 Pulse Rate 76 05/06/24 08:14 Respiratory Rate 16 05/06/24 08:14 Blood Pressure 142/103 H 05/06/24 08:14
== END 2024-05-06 08:35 | disposition short-term general hospital (02) ==
PROVIDERS: Emergency Provider Nurse Practitioner Family; PCP Family Medicine
DX: R10.12 Left upper quadrant pain (principal); R11.0 Nausea; N80.9 Endometriosis, unspecified; E78.5 Hyperlipidemia, unspecified; I10 Essential (primary) hypertension; F41.9 Anxiety disorder, unspecified; F32.A Depression, unspecified
CPT/HCPCS: 99212; G0463

== ENCOUNTER 2024-05-06 08:50 | Emergency (ER) | payer OTHER, SELFPAY ==
--- NOTE | ~2024-05-06 | CT_ITS ---
EXAMINATION: CT abdomen pelvis w con DATE: 05/06/2024 10:52 INDICATION: Left upper quadrant abdominal pain TECHNIQUE: Computed tomography (CT) of the abdomen and pelvis was performed without intravenous contr ast. Automated exposure control and iterative reconstruction technique were employed. The dose-length product was 539.45 mGy-cm. COMPARISON: None FINDINGS: Mild dependent atelectasis in the bilateral lower lobes. Heart size is normal. No pericardial or pleu ral effusion. Liver, gallbladder, spleen, pancreas, bilateral adrenal glands and kidneys are normal. Bowels including the appendix are normal. The uterus is not identified and has likely been surgically resected. The bilateral adnexa are unremarkable aside from a likely retained tubal ligation clip on the right. No free intraperitoneal gas or fluid. No pathologically enlarged abdominal or pelvic lymph adenopathy. Mild lumbar and lower thoracic spondylosis. There is vacuum phenomena within a likely syn ovial cyst which encroaches upon the right L4-L5 neural foramen and adjacent right lateral recess. IMPRESSION: 1. No acute intra-abdominal/pelvic process. Reviewed, dictated and finalized at location A.
[2024-05-06 08:58] VITALS: BP 160/98; PULSE 74; RESP 16; TEMP 36.6; O2SAT 100
[2024-05-06 09:20] VITALS: BP 140/97; PULSE 71; RESP 12; O2SAT 99
[2024-05-06 09:25] LABS: Basophils Percent Auto 0.5 % (0.2-1.2); Eosinophils Absolute Auto 0.1 K/mm3 (0-0.3); Eosinophils Percent Auto 0.8 % (0-4.4); Hematocrit 41.9 % (37.0-47.0); Hemoglobin 13.9 g/dL (12.0-15.0); Immature Granulocyte Absolute 0.03 K/mm3 (0.00-0.031); Immature Granulocyte Percent A 0.5 % (0-0.5); Lymphocytes Absolute Auto 2.17 K/mm3 (0.9-3.2); Lymphocytes Percent Auto 33.1 % (18.3-44.2); Mean Corpuscular HGB Conc 33.2 g/dl (32-36); Mean Corpuscular Hemoglobin 32.1 pg (26-34); Mean Corpuscular Volume 96.8 fl (80-100); Mean Platelet Volume 9.6 fl (7.4-10.4); Monocytes Absolute Auto 0.5 K/mm3 (0.1-0.6); Monocytes Percent Auto 7.9 % (2.6-8.5); Neutrophils Absolute Auto 3.8 K/mm3 (1.3-6.7); Neutrophils Percent Auto 57.2 % (45.5-73.1); Platelet Count Result 210 k/mm3 (150-375); Red Blood Count 4.33 M/mm3 (4.2-5.4); Red Cell Distribution Width 12.3 % (11.5-14.5); White Blood Count 6.6 K/mm3 (4.5-10.0)
[2024-05-06 09:38] LABS: Alanine Aminotransferase 24 U/L (6-35); Albumin Level 4.7 g/dL (3.5-5.1); Alkaline Phosphatase 62 U/L (38-126); Anion Gap 8 mmol/L (4-12); Aspartate Amino Transferase 27 U/L (14-36); Bilirubin,Total 0.4 mg/dL (0.2-1.3); Blood Urea Nitrogen 20 mg/dL (7-17); Calcium 9.2 mg/dL (8.4-10.2); Carbon Dioxide 31 mmol/L (22-30); Chloride 101 mmol/L (98-107); Estimated CRCL calculation 99 ml/min; Estimated Glomerular Filt Rate > 60; Glucose 98 mg/dL (65-110); Lipase 30 U/L (23-300); Potassium 3.6 mmol/L (3.4-5.0); Sodium 140 mmol/L (137-145)
[2024-05-06 09:49] LABS: Add Urine Microscopic? YES; Appearance Urine Clear (Clear); Bacteria Urine None Seen /hpf; Bilirubin Urine Negative (Negative); Blood Urine Non-Hemolyzed Trace (Negative); Color Urine Yellow (Yellow); Glucose Urine UA Negative (Negative); Ketones Urine Negative (Negative); Leukocyte Esterase Ur 1+ LEU/UL (Negative); Need Manual Microscopic Reviewed; Nitrate Urine Negative (Negative); Non Pathogenic Casts 0-2; Protein Urine Negative (Negative); Specific Grav Ur 1.023 (1.001-1.035); Squamous Epithelial Cell Urine Occasional /hpf (Few); WBC Urine 0-5 /hpf (0-3); pH Urine 6.5 (5.0-9.0)
--- NOTE | 2024-05-06 10:01 | ED.ABDPAIN ---
HPI - Abdominal Pain General Chief Complaint: Abdominal Pain Stated Complaint: LUQ pain Time Seen by Provider: 05/06/24 09:08 Source: patient Mode of arrival: EMS Limitations: no limitations History of Present Illness HPI narrative: This is a 53-year-old female, with no significant past medical history, presents emergency department from urgent care with multiple quadrant abdominal pain beginning yesterday. The patient states she has been recently doing increased physical activity, including sit-ups denies other trauma or recent illness. She describes her pain as burning and sharp, rated 7/10, primarily in the left upper quadrant though occasionally spreading across the abdomen. She denies associated nausea, vomiting, diarrhea, chest pain, shortness of breath or loss of consciousness she has no other complaints at time. Related Data Allergies Allergy/AdvReac Type Severity Reaction Status Date / Time amoxicillin [From Augmentin] AdvReac Intermediate Nausea and Verified 05/06/24 08:17 Vomiting clavulanic acid AdvReac Intermediate Nausea and Verified 05/06/24 08:17 [From Augmentin] Vomiting Review of Systems Review of Systems: All systems reviewed & are unremarkable except as noted in HPI and below PMFSH Past Medical History Medical History Anxiety BMI 27.0-27.9,adult Depression Endometriosis Genital herpes HLD (hyperlipidemia) Hypertension Surgical History Surgical History H/O: hysterectomy Family History Family History Mother Depression Grandparent Hypertension Carcinoma of colon Family history of malignant neoplasm of breast Father Family history of diabetes mellitus in first degree relative Social History Social History Smoking status: Never smoker Second hand tobacco smoke exposure: No Alcohol intake: current Alcohol use details: one drink monthly Substance use: never Substance use type: does not use Lack of Transportation: No Lack of Food: Never True Current Housing: I Have Housing Concerned About Future Housing: No Difficulty Paying Gas/Electric Bills: No Difficulty Paying for Meds: No Currently Unemployed: No Education: Decline to Answer Difficulty w/ Childcare or Family Care: No Living arrangements: with family Gender identity (if verbalized by the patient): Female Sexual Orientation (if Verbalized by the Patient): Straight or Heterosexual Spiritual care concerns: No Agree to blood products: Yes Exam Narrative: GENERAL: Well-developed, well-nourished, and in no acute distress. HEAD: Normocephalic, atraumatic. EYES: PERRLA and EOMI. CHEST: Clear to auscultation. No respiratory distress. No wheezes rales or rhonchi HEART: Regular rate and rhythm. No murmur heard. Normal peripheral pulses. ABDOMEN: Soft, tender to palpation in the left upper quadrant along the inferior costophrenic margin, nondistended, normal active bowel sounds. No CVA tenderness EXTREMITIES: Normal range of motion. No edema. SKIN: Warm, dry, no rash. NEURO: Alert and oriented x3. No focal deficit. Moving all 4 limbs spontaneously PSYCH: Normal mood and affect. Course Course Emergency Course: 09:29 - I did share decision making conversation with patient. She would prefer to have lab work and trial oral medications prior to imaging. 12:03 - CBC unremarkable. UA demonstrates 6-10 RBCs with 1+ leukocyte esterase but no other changes concerning for urinary tract infection. Chemistries unremarkable. CT abdomen pelvis not concerning for acute intra-abdominal process. I suspect the patient's pain is related to muscle strain given her recent increase in physical activity. Will discharge with recommendation for NSAIDs, lidocaine patches primary care follow-up
[2024-05-06 10:30] VITALS: BP 138/90; PULSE 76; RESP 18; TEMP 36.5; O2SAT 96
[2024-05-06] MEDS: ACETAMINOPHEN 500 MG TABLET 1000 MG PO (10:31)
[2024-05-06] MEDS: LIDOCAINE 5% PATCH 1 PATCH TRANSDERM (10:31)
[2024-05-06] MEDS: BELLADONNA ALK/PHENOB ELIX 10 ML, MAG HYDROX/ALUMINUM HYD/SIMETH 30 ML, LIDOCAINE HCL 2... PO (10:31)
[2024-05-06 10:50] VITALS: BP 135/95; PULSE 76; RESP 13; TEMP 36.6; O2SAT 99
[2024-05-06 11:55] VITALS: BP 140/95; PULSE 69; RESP 19; O2SAT 96
[2024-05-06] MEDS: KETOROLAC 30 MG/ML VIAL (*BKC) IV PUSH (12:18)
[2024-05-09 14:24] LABS: BEDSIDEPREGUCG Negative (Negative)
== END 2024-05-06 12:30 | disposition home or self-care (01) ==
PROVIDERS: Emergency Provider Preventive Medicine Aerospace Medicine; PCP Family Medicine
DX: R10.12 Left upper quadrant pain (principal); F41.8 Other specified anxiety disorders; E78.5 Hyperlipidemia, unspecified; I10 Essential (primary) hypertension
CPT/HCPCS: 36415; 74177; 80053; 81001; 81025; 83690; 85025; 87077; 87086; 87088; 96374; 99284; A9270; J1885; Q9967

== ENCOUNTER 2024-11-30 08:01 | Emergency (ER) | payer OTHER, SELFPAY ==
--- NOTE | 2024-11-30 08:05 | ED_ITS ---
HPI - URI/Sore Throat General Chief Complaint: Upper Respiratory Infection Stated Complaint: COLD SYMPTOMS/COUGH/CHEST/DIZZY Time Seen by Provider: 11/30/24 08:03 Source: patient Mode of arrival: ambulatory Limitations: no limitations History of Present Illness HPI Narrative: Neha is a 54-year-old female patient presenting to the clinic today with complaints of runny nose, cough, sinus pressure, chest congestion, and dizziness times 10 days. She reports she has had a cold for 10 days. States that there is green and yellow nasal drainage and she is coughing up green and yellow mucus. Started having dizziness this morning. Feels as though her ears are full of fluid/pressure. Denies any fevers, chills, body aches. Denies any chest pain or shortness of breath. Related Data Allergies Allergy/AdvReac Type Severity Reaction Status Date / Time amoxicillin (From Augmentin) AdvReac Intermediate Nausea and Verified 05/11/24 08:24 Vomiting clavulanic acid (From AdvReac Intermediate Nausea and Verified 05/11/24 08:24 Augmentin) Vomiting Review of Systems Review of Systems: Pertinent positives per HPI. Patient denies any fever, chills, rash, visual changes, shortness of breath, chest pain, palpitations, nausea, vomiting, diarrhea, constipation, abdominal pain, or any urinary issues. [facility] Past Medical History Medical History BMI 27.0-27.9,adult Anxiety Endometriosis Genital herpes Depression HLD (hyperlipidemia) Hypertension Surgical History Surgical History H/O: hysterectomy Family History Family History Mother Depression Grandparent Hypertension Carcinoma of colon Family history of malignant neoplasm of breast Father Family history of diabetes mellitus in first degree relative Social History Social History Smoking status: Never smoker Second hand tobacco smoke exposure: No Alcohol intake: current Alcohol use details: one drink monthly Substance use: never Substance use type: does not use Lack of Transportation: No Lack of Food: Never True Current Housing: I Have Housing Concerned About Future Housing: No Difficulty Paying Gas/Electric Bills: No Difficulty Paying for Meds: No Currently Unemployed: No Education: Decline to Answer Difficulty w/ Childcare or Family Care: No Living arrangements: with family Gender identity (if verbalized by the patient): Female Sexual Orientation (if Verbalized by the Patient): Straight or Heterosexual Spiritual care concerns: No Agree to blood products: Yes Comments At the time of my signature, I reviewed and agree with the nursing past medical, surgical, social, and family history. There is no relevant family history pertinent to the patient complaint. Exam Narrative: General: Well-developed, well nourished, in no apparent distress Head: Normocephalic, atraumatic Eyes: Pupils equally round and reactive to light bilaterally, EOM intact, sclera and conjunctive clear, no discharge, lids normal Ears: TMs intact and congested, ear canals clear, no drainage, grossly hearing normal. Nose: Nares patent, green nasal discharge, severe inflammation, maxilla sinus tenderness. Mouth: Oral pharynx without lesions or masses, good dentition, MMM. Postnasal drip Neck: Supple, trachea midline, no enlargement of anterior or posterior cervical nodes, no thyroid masses or goiter palpable. Cardio: Regular rate and rhythm, s1 and s2 normal, no murmur appreciated. Resp: Clear to auscultation bilaterally, no rhonchi, rales, wheezing or rubs Course Course Emergency Course: Portions of this record may have been created with voice recognition software. Level of Care: Express Care Visit Vital Signs Vital signs: Vital signs reviewed MDM - URI/Sore Throat MDM Narrative Medical decision making narrative: At the time of visit patient is resting comfortably on the exam table. Patient appears to be nontoxic. Plan: I suspect patient has acute bacterial rhinosinusitis. Prescription for doxycycline and prednisone was sent to the pharmacy. Supportive measures were discussed with the patient and they voiced understanding discharge instructions and agrees to treatment plan. Return precautions reviewed Differential Diagnosis Differential diagnosis: Likely upper respiratory infection, otitis media, sinusitis, viral infection, bronchitis, influenza, pharyngitis and other (COVID) Discharge Plan Discharge Clinical Impression: Acute bacterial rhinosinusitis Patient Disposition: Home Condition: Stable Instructions: Antibiotic Form, Rhinosinusitis (ED) Additional Instructions: Take prescription medications only as prescribed-prednisone and doxycycline Increase fluids and stay well hydrated Tylenol/motrin for pain/fever Flonase and OTC antihistamines as directed Vicks vapor rub to open sinuses Sinus rinses for congestion Cepacol spray, cough drops, throat lozenges, warm tea with honey/lemon, gargle salt water to soothe throat BRAT diet for diarrhea Clear liquids x 24 hours then advance as tolerated for nausea/vomiting Go to the ED if you develop a worsening in your condition- high fever not controlled by Tylenol or Motrin, dehydration, weakness, lethargy, shortness of breath, or chest pain. Follow up with your PCP in 3-5 days if symptoms persist. Patient Language: [place] Prescriptions: New doxycycline monohydrate 100 mg capsule 100 mg PO BID 10 Days Qty: 20 0RF prednisone 20 mg tablet 40 mg PO DAILY 5 Days Qty: 10 0RF No Action buspirone 5 mg tablet 5 mg PO BID PRN (Reason: anxiety) Qty: 30 2RF omeprazole 40 mg capsule,delayed release(DR/EC) 40 mg PO DAILY Qty: 14 0RF lidocaine 5 % adhesive patch,medicated 1 patch topical DAILY Qty: 30 0RF Rx Instructions: leave on most painful area for up to 12 hrs sertraline 100 mg tablet 150 mg PO DAILY Qty: 135 3RF rosuvastatin [Crestor] 5 mg tablet 5 mg PO DAILY Qty: 30 6RF (DME) cpap water chamber See Rx Instructions .Route .MEDSUPPLY Qty: 1 0RF Rx Instructions: As directed nightly meloxicam 15 mg tablet 15 mg PO DAILY Qty: 90 1RF amlodipine 5 mg tablet 5 mg PO DAILY Qty: 90 3RF losartan 50 mg tablet 50 mg PO DAILY Qty: 30 8RF Follow-up/Referrals: Neha Schofield MD [Primary Care Provider] - Time of Disposition: 08:15 Quality NIHSS Nursing Documentation ED NIHSS nursing documentation: reviewed/agree
[2024-11-30 08:12] VITALS: BP 136/87; PULSE 82; RESP 16; TEMP 36.8; O2SAT 99
== END 2024-11-30 08:18 | disposition home or self-care (01) ==
PROVIDERS: Emergency Provider Nurse Practitioner Family; PCP Family Medicine
DX: J01.90 Acute sinusitis, unspecified (principal); I10 Essential (primary) hypertension; E78.5 Hyperlipidemia, unspecified; N80.9 Endometriosis, unspecified; F41.9 Anxiety disorder, unspecified; F32.A Depression, unspecified
CPT/HCPCS: 99213; G0463

== ENCOUNTER 2024-12-12 07:38 | Outpatient (CLI) | payer OTHER, SELFPAY ==
--- NOTE | ~2024-12-12 | MM_ITS ---
EXAMINATION: MM screening cesar BI w angel HISTORY: Screening TECHNIQUE: Craniocaudal and mediolateral oblique 3-D tomosynthesis images were obtained and synthetic 2-D images were generated. CAD analysis was submitted and interpreted. COMPARISON: Comparison to multiple prior studies sequentially, with oldest reviewed study dated 03/30. BREAST PARENCHYMAL COMPOSITION: Dense: The breasts are heterogeneously dense, which may obscure small masses FINDINGS: There are developing asymmetries in the upper outer quadrant of the right breast. The left breast is stable without evidence for malignancy. IMPRESSION: 1. Developing right breast asymmetries. 2. Additional mammographic views and possible breast ultrasound are recommended. BI-RADS Category 0: Incomplete: Needs additional imaging evaluation. Reviewed, dictated and finalized at location A. IMPRESSION: 1. Developing right breast asymmetries. 2. Additional mammographic views and possible breast ultrasound are recommended . BI-RADS Category 0: Incomplete: Needs additional imaging evaluation.
== END 2024-12-12 07:39 | disposition home or self-care (01) ==
LOC: MICIMG 07:39
PROVIDERS: PCP Family Medicine; Visit Provider Obstetrics & Gynecology
DX: Z12.31 Encounter for screening mammogram for malignant neoplasm of breast (principal); R92.8 Other abnormal and inconclusive findings on diagnostic imaging of breast
CPT/HCPCS: 77063; 77067

== ENCOUNTER 2024-12-30 08:00 | Outpatient (CLI) | payer OTHER, SELFPAY ==
--- NOTE | ~2024-12-30 | MMUS_ITS ---
EXAMINATION: MM diagnostic cesar RT w angel, US breast RT limited HISTORY: Follow-up right breast asymmetries TECHNIQUE: Additional 3-D tomosynthesis images of the right breast were performed and synthetic 2-D i mages were generated. CAD analysis was submitted and interpreted. High resolution Limited right breas t ultrasound was performed. COMPARISON: Comparison to multiple prior studies sequentially, with oldest reviewed study dated 11/17. BREAST PARENCHYMAL COMPOSITION: Dense: The breasts are heterogeneously dense, which may obscure small masses FINDINGS: MAMMOGRAPHIC FINDINGS: There are no suspicious masses, calcifications or architectural distortion in the right breast to sug gest malignancy. Asymmetries compress with spot views, compatible with superimposed fibroglandular ti ssue. ULTRASOUND: Limited right breast ultrasound: Normal heterogeneous echotexture without focal solid or cystic mass. IMPRESSION: 1. No evidence for malignancy in the right breast. 2. Routine yearly screening mammogram and regular clinical breast examination are recommended. BI-RADS Category 1: Negative Reviewed, dictated and finalized at location [] IMPRESSION: 1. No evidence for malignancy in the right breast. 2. Routine yearly screening mammogram and regular clinical breast examination a re recommended. BI-RADS Category 1: Negative
== END 2024-12-30 08:01 | disposition home or self-care (01) ==
LOC: MICIMG 08:01
PROVIDERS: PCP Family Medicine; Visit Provider Obstetrics & Gynecology
DX: R92.8 Other abnormal and inconclusive findings on diagnostic imaging of breast (principal); M25.562 Pain in left knee
CPT/HCPCS: 73564; 76642; 77061; 77065; G0279

== ENCOUNTER 2025-01-09 08:12 | Emergency (ER) | payer OTHER, SELFPAY ==
[2025-01-09 08:18] VITALS: BP 132/98; PULSE 84; RESP 18; TEMP 36.9; O2SAT 99
--- NOTE | 2025-01-09 08:27 | ED.EYEPROB ---
HPI - Eye Problem General Chief complaint: Eye Problems Stated complaint: Blood Clot Left Eye Source: patient Mode of arrival: ambulatory Limitations: no limitations History of Present Illness HPI Narrative: Patient is a 54 year old female who presents to the clinic with complaints of a popped blood vessel to her left eye since last night. She states that she noticed some irritation to it last night, but just thought it was her contact lens bothering her. She has not used any over the counter medications. She denies any vision changes, photosensitivity, or eye pain. Related Data Allergies Allergy/AdvReac Type Severity Reaction Status Date / Time amoxicillin (From Augmentin) AdvReac Intermediate Nausea and Verified 01/09/25 08:18 Vomiting clavulanic acid (From AdvReac Intermediate Nausea and Verified 01/09/25 08:18 Augmentin) Vomiting Review of Systems Review of Systems: CONSTITUTIONAL: Denies body aches, fever, chills EYES: Endorses redness and to L eye; No FB sensation or photophobia. Denies visual changes. ENT: Denies rhinorrhea, congestion, sore throat, or otalgia. CARDIOVASCULAR: Denies chest pain, palpitations RESPIRATORY: Denies cough or dyspnea. GASTROINTESTINAL: Denies abdominal pain, nausea, vomiting, or diarrhea. SKIN: Denies rash, itching, or wounds. MUSCULOSKELETAL: Denies back pain, joint pain, or myalgia. NEUROLOGIC: Denies headache, numbness, tingling, or weakness. All systems reviewed & are unremarkable except as noted in HPI and below PMFSH Past Medical History Medical History Foot pain Leg pain BMI 27.0-27.9,adult Anxiety Endometriosis Genital herpes Depression HLD (hyperlipidemia) Hypertension Surgical History Surgical History H/O: hysterectomy Family History Family History Mother Depression Grandparent Hypertension Carcinoma of colon Family history of malignant neoplasm of breast Father Family history of diabetes mellitus in first degree relative Social History Social History Smoking status: Never smoker Second hand tobacco smoke exposure: No Alcohol intake: current Alcohol use details: one drink monthly Substance use: never Substance use type: does not use Lack of Transportation: No Lack of Food: Never True Current Housing: I Have Housing Concerned About Future Housing: No Difficulty Paying Gas/Electric Bills: No Difficulty Paying for Meds: No Currently Unemployed: No Education: Decline to Answer Difficulty w/ Childcare or Family Care: No Living arrangements: with family Gender identity (if verbalized by the patient): Female Sexual Orientation (if Verbalized by the Patient): Straight or Heterosexual Spiritual care concerns: No Agree to blood products: Yes Comments At time of signature, I have reviewed and agree with nursing past medical, surgical, social and family history unless otherwise noted. Please see nursing chart for further information. There is no relevant family history pertinent to the presenting complaint. Exam Narrative: GENERAL: Well-appearing HEAD: Normocephalic, atraumatic. EYES: ?L subconjunctival hemorrhage, No eye lid swelling or redness. EOMI. ?Lid eversion with no FB. ENT: Mucous membranes pink and moist. ?No rhinorrhea. ?TMs normal bilaterally. ?Throat normal. Uvula midline. CHEST: ?Clear to auscultation. HEART: Regular rate and rhythm. ABDOMEN: Soft, nontender, nondistended SKIN: Warm, dry, no rash. ?Normal skin turgor. NEURO: No focal deficits. Alert and oriented x3 PSYCH: ?Normal affect. Course Course Level of Care: Express Care Visit Vital Signs Vital signs: Vital Signs Temperature 98.5 F 01/09/25 08:18 Pulse Rate 84 01/09/25 08:18 Respiratory Rate 18 01/09/25 08:18 Blood Pressure 132/98 H 01/09/25 08:18 Pulse Oximetry 99 01/09/25 08:18 Oxygen Delivery Room Air 01/09/25 08:18 Temperature 98.5 F 01/09/25 08:18 Pulse Rate 84 01/09/25 08:18 Respiratory Rate 18 01/09/25 08:18 Blood Pressure 132/98 H 01/09/25 08:18 Pulse Oximetry 99 01/09/25 08:18 Oxygen Delivery Room Air 01/09/25 08:18 Reviewed Procedures FB Removal Eye Foreign Body #1: Foreign Body Removal Date: 01/09/25 Location: eye (L) Topical anesthetic used: tetracaine Foreign body: other (none noted on exam) Evidence of corneal penetration: No Technique: eye wash bottle Procedure performed under: other (madsen lamp) Patient tolerated procedure: well and no complications Foreign Body Removal Narrative: Left eye was anesthetized with 1 drop of tetracaine and anesthesia was achieved. The eye was flushed with eye wash. Lid was inverted and examined. Cornea was dyed with fluorescein and no abrasions or ulcerations were noted. Pt tolerated procedure well. MDM - Eye Problem MDM Narrative Medical decision making narrative: Discussed physical exam findings c/w subconjunctival hemorrhage. No FB or ulceration noted. Advised supportive measures and signs/symptoms to go to the ER. Pt is appropriate for outpt treatment and follow up. Differential Diagnosis Differential diagnosis: Likely corneal abrasion, conjunctivitis, subconjunctival hemorrhage and corneal ulcer Critical Care Time Critical Care Time Critical Care Time: No Discharge Plan Discharge Clinical Impression: Subconjunctival hemorrhage Qualifiers: Laterality: left Qualified Code(s): H11.32 - Conjunctival hemorrhage, left eye Patient Disposition: Home Condition: Stable Instructions: Conjunctivitis (ED) Additional Instructions: Usually will clear up in 1 to 2 weeks. Avoid eye strain - (reading, screen time). Avoid touching or rubbing your eye. Use over the counter lubricating eye drops as needed for irritation Use a warm or cool washcloth on your eye for comfort. Practice good handwashing and hygiene to prevent spread of infection Do not wear the contact lenses. Use a new pair after it is resolved. Use new makeup, lashes etc. You may take Tylenol or ibuprofen for pain Follow-up with PCP or wastewater treatment engineer if condition is not improving in 2-3days. Go to the emergency room if you have severe pain or pressure behind your eye, difficulty seeing, or other severe symptoms. Patient Language: [place]ic Prescriptions: No Action sertraline 100 mg tablet 150 mg PO DAILY Qty: 135 3RF (DME) cpap water chamber See Rx Instructions .Route .MEDSUPPLY Qty: 1 0RF Rx Instructions: As directed nightly amlodipine 5 mg tablet 5 mg PO DAILY Qty: 90 3RF losartan 50 mg tablet 50 mg PO DAILY Qty: 90 3RF rosuvastatin [Crestor] 5 mg tablet 5 mg PO DAILY Qty: 30 6RF meloxicam 15 mg tablet 15 mg PO DAILY Qty: 90 1RF Follow-up/Referrals: Neha Schofield MD [Primary Care Provider] - Stand Alone Forms: Work/School Release IP Time of Disposition: 08:56
[2025-01-09] MEDS: TETRACAINE HCL 0.5% OPHTH SOLN 4 ML BTL AFFCTD EYE (08:40)
[2025-01-09] MEDS: DACRIOSE EYE IRRIGATION 118 ML BOTTLE AFFCTD EYE (08:40)
[2025-01-09] MEDS: FLUORESCEIN SOD 1 MG/STRIP AFFCTD EYE (08:40)
== END 2025-01-09 08:59 | disposition home or self-care (01) ==
PROVIDERS: PCP Family Medicine
DX: H11.32 Conjunctival hemorrhage, left eye (principal); I10 Essential (primary) hypertension; E78.5 Hyperlipidemia, unspecified; N80.9 Endometriosis, unspecified
CPT/HCPCS: 99213; A9270; G0463